=== PATIENT | male | born 1965 | race Caucasian/White ===

== ENCOUNTER 2018-02-20 17:48 | Inpatient (IN) | payer OTHER ==
[~2018-02-20] VITALS: Ht 180.3 cm; Wt 93.0 kg
[2018-02-20 19:20] LABS: BASOPHIL % 0.1 % (0-2); PLATELET COUNT 358 x10^3mcL (130-400); RED CELL DISTRIBUTION WIDTH 14.1 % (11.5-14.5)
[2018-02-20 19:27] LABS: CALCIUM 8.4 mg/dL (8.5-10.1); CARBON DIOXIDE 14.4 mmol/L (21-32); CHLORIDE SERUM 97 mmol/L (98-107); GFR1 > 60 mL/min; GLUCOSE SERUM 280 mg/dL (74-106); POTASSIUM SERUM 4.2 mmol/L (3.5-5.1); SODIUM SERUM 129 mmol/L (136-145)
[2018-02-20 19:31] LABS: ALKALINE PHOSPHATASE 85 U/L (46-116); ALT/SGPT 15 U/L (16-63); BILIRUBIN TOTAL 0.77 mg/dL (0.20-1.00)
[2018-02-20 19:38] LABS: ALBUMIN 2.6 g/dL (3.4-5.0); CHOLESTEROL 93 mg/dL (<200)
[2018-02-20 19:43] LABS: AST/SGOT 20 U/L (15-37)
[2018-02-20 20:40] LABS: AMPHETAMINE QUAL UR NONE DETECTED (See below)
[2018-02-20] MEDS ORDERED: JANUVIA100 M1 (23:33)
[2018-02-20] MEDS ORDERED: ASPIR LOW81 MG (23:33)
[2018-02-20] MEDS ORDERED: INVOKANA300 MG (23:33)
[2018-02-20] MEDS ORDERED: ATORVASTATIN CA10 M1 (23:33)
[2018-02-20] MEDS ORDERED: LOSARTAN POTASS25 M1 (23:33)
[2018-02-20] MEDS ORDERED: METFORMIN HYDR500 M1 (23:34)
[2018-02-21] VITALS (7 sets, daily range): BP systolic 92–135; BP diastolic 58–75; Ht 180.3 cm; Wt 93.0 kg
[2018-02-21 00:53] LABS: microscopic required? YES; urine erythrocyte NEGATIVE (NEGATIVE)
[2018-02-21 02:30] LABS: MAGNESIUM 1.7 mg/dL (1.8-2.4); PHOSPHOROUS 2.4 mg/dL (2.5-4.9)
[2018-02-21 02:32] LABS: CHOLESTEROL/HDL RATIO 3.2
[2018-02-21 02:54] LABS: FREE T4 1.22 ng/dL (0.76-1.46); FREE THYROXINE INDEX 2.5 ug/dL (1.4-4.5)
[2018-02-21 03:19] LABS: T3 TOTAL 0.51 ng/mL
[2018-02-21 05:22] LABS: CALCIUM 7.9 mg/dL (8.5-10.1); CARBON DIOXIDE 17.9 mmol/L (21-32); CHLORIDE SERUM 103 mmol/L (98-107); GFR1 > 60 mL/min; GLUCOSE SERUM 148 mg/dL (74-106); MAGNESIUM 1.9 mg/dL (1.8-2.4); POTASSIUM SERUM 3.3 mmol/L (3.5-5.1); SODIUM SERUM 134 mmol/L (136-145)
[2018-02-21 09:09] LABS: CALCIUM 8.1 mg/dL (8.5-10.1); CARBON DIOXIDE 17.3 mmol/L (21-32); CHLORIDE SERUM 103 mmol/L (98-107); GFR1 > 60 mL/min; GLUCOSE SERUM 157 mg/dL (74-106); MAGNESIUM 1.9 mg/dL (1.8-2.4); PHOSPHOROUS 1.5 mg/dL (2.5-4.9); POTASSIUM SERUM 3.5 mmol/L (3.5-5.1); SODIUM SERUM 135 mmol/L (136-145)
[2018-02-21 12:19] LABS: CALCIUM 8.3 mg/dL (8.5-10.1); CARBON DIOXIDE 20.9 mmol/L (21-32); CHLORIDE SERUM 103 mmol/L (98-107); GFR1 > 60 mL/min; GLUCOSE SERUM 138 mg/dL (74-106); MAGNESIUM 1.8 mg/dL (1.8-2.4); POTASSIUM SERUM 3.5 mmol/L (3.5-5.1); SODIUM SERUM 136 mmol/L (136-145)
[2018-02-21 12:22] LABS: PHOSPHOROUS 0.9 mg/dL (2.5-4.9)
[2018-02-21 16:59] LABS: CALCIUM 8.2 mg/dL (8.5-10.1); CARBON DIOXIDE 23.6 mmol/L (21-32); CHLORIDE SERUM 102 mmol/L (98-107); GFR1 > 60 mL/min; GLUCOSE SERUM 129 mg/dL (74-106); MAGNESIUM 1.7 mg/dL (1.8-2.4); POTASSIUM SERUM 3.5 mmol/L (3.5-5.1); SODIUM SERUM 134 mmol/L (136-145)
[2018-02-21 17:00] LABS: PHOSPHOROUS 0.6 mg/dL (2.5-4.9)
[2018-02-22 00:38] LABS: CALCIUM 6.6 mg/dL (8.5-10.1); CARBON DIOXIDE 19.3 mmol/L (21-32); CHLORIDE SERUM 104 mmol/L (98-107); CREATININE SERUM 0.7 mg/dL (0.7-1.3); GFR1 > 60 mL/min; GLUCOSE SERUM 148 mg/dL (74-106); POTASSIUM SERUM 3.1 mmol/L (3.5-5.1); SODIUM SERUM 136 mmol/L (136-145)
[2018-02-22 03:31] VITALS: BP 92/58
[2018-02-22 06:12] LABS: CALCIUM 7.8 mg/dL (8.5-10.1); CARBON DIOXIDE 16.1 mmol/L (21-32); CHLORIDE SERUM 103 mmol/L (98-107); CREATININE SERUM 0.8 mg/dL (0.7-1.3); GFR1 > 60 mL/min; GLUCOSE SERUM 249 mg/dL (74-106); MAGNESIUM 1.7 mg/dL (1.8-2.4); PHOSPHOROUS 1.7 mg/dL (2.5-4.9); SODIUM SERUM 135 mmol/L (136-145)
[2018-02-22 07:07] LABS: PLATELET COUNT 275 x10^3mcL (130-400); RED CELL DISTRIBUTION WIDTH 14.1 % (11.5-14.5)
[2018-02-22 08:00] VITALS: BP 101/54
[2018-02-22 10:21] LABS: BAND NEUTROPHIL 11 % (0-10); BASOPHIL 0 % (0-2); MONOCYTE 9 % (0-7); SEGMENTED NEUTROPHILS 76 % (37-75)
[2018-02-22 10:22] LABS: burr cell (echinocyte) 1+; rbc morphology (normal/abnorm) ABNORMAL (NORMAL)
[2018-02-22 12:00] VITALS: BP 90/57
[2018-02-22 12:13] LABS: CALCIUM 7.8 mg/dL (8.5-10.1); CARBON DIOXIDE 23.2 mmol/L (21-32); CHLORIDE SERUM 105 mmol/L (98-107); CREATININE SERUM 0.7 mg/dL (0.7-1.3); GFR1 > 60 mL/min; GLUCOSE SERUM 191 mg/dL (74-106); POTASSIUM SERUM 3.2 mmol/L (3.5-5.1); SODIUM SERUM 137 mmol/L (136-145)
[2018-02-22 12:52] LABS: microscopic required? NO
[2018-02-22 13:00] LABS: UA SPECIFIC GRAVITY <=1.005 (1.005-1.035); urine erythrocyte NEGATIVE (NEGATIVE)
[2018-02-22 16:00] VITALS: BP 93/57
[2018-02-22 18:47] VITALS: BP 98/59
[2018-02-22 21:10] VITALS: BP 115/63
[2018-02-23 05:54] VITALS: BP 95/58
[2018-02-23 06:31] LABS: BASOPHIL % 0.2 % (0-2); PLATELET COUNT 271 x10^3mcL (130-400); RED CELL DISTRIBUTION WIDTH 14.2 % (11.5-14.5)
[2018-02-23 06:49] LABS: CALCIUM 7.9 mg/dL (8.5-10.1); CHLORIDE SERUM 106 mmol/L (98-107); CREATININE SERUM 0.5 mg/dL (0.7-1.3); GFR1 > 60 mL/min; GLUCOSE SERUM 80 mg/dL (74-106); SODIUM SERUM 140 mmol/L (136-145)
[2018-02-23 06:56] LABS: POTASSIUM SERUM 2.9 mmol/L (3.5-5.1)
[2018-02-23 09:18] VITALS: BP 96/46
[2018-02-23 12:39] VITALS: BP 101/62
[2018-02-23 17:02] VITALS: BP 122/84
[2018-02-23 21:29] VITALS: BP 104/65
[2018-02-24 05:51] VITALS: BP 116/63
[2018-02-24 05:59] LABS: BASOPHIL % 0.3 % (0-2); PLATELET COUNT 300 x10^3mcL (130-400); RED CELL DISTRIBUTION WIDTH 14.5 % (11.5-14.5)
[2018-02-24 06:22] LABS: CALCIUM 7.9 mg/dL (8.5-10.1); CARBON DIOXIDE 29.3 mmol/L (21-32); CHLORIDE SERUM 107 mmol/L (98-107); CREATININE SERUM 0.5 mg/dL (0.7-1.3); GFR1 > 60 mL/min; GLUCOSE SERUM 109 mg/dL (74-106); POTASSIUM SERUM 3.6 mmol/L (3.5-5.1); SODIUM SERUM 142 mmol/L (136-145)
[2018-02-24 09:35] VITALS: BP 110/64
[2018-02-24 13:24] VITALS: BP 113/70
[2018-02-24 16:36] VITALS: BP 112/67
[2018-02-24 21:01] VITALS: BP 109/65
[2018-02-25 06:07] VITALS: BP 121/64
[2018-02-25 06:25] LABS: BASOPHIL % 1.6 % (0-2); PLATELET COUNT 329 x10^3mcL (130-400)
[2018-02-25 06:26] LABS: RED CELL DISTRIBUTION WIDTH 14.7 % (11.5-14.5)
[2018-02-25 06:32] LABS: CALCIUM 7.8 mg/dL (8.5-10.1); CARBON DIOXIDE 29.7 mmol/L (21-32); CHLORIDE SERUM 106 mmol/L (98-107); CREATININE SERUM 0.4 mg/dL (0.7-1.3); GFR1 > 60 mL/min; GLUCOSE SERUM 130 mg/dL (74-106); MAGNESIUM 1.6 mg/dL (1.8-2.4); PHOSPHOROUS 3.1 mg/dL (2.5-4.9); POTASSIUM SERUM 3.3 mmol/L (3.5-5.1); SODIUM SERUM 141 mmol/L (136-145)
[2018-02-25 08:35] VITALS: BP 111/58
[2018-02-25 11:30] VITALS: BP 116/64
[2018-02-25 16:56] VITALS: BP 125/70
[2018-02-25 20:46] VITALS: BP 117/68
[2018-02-26 05:49] VITALS: BP 111/58
[2018-02-26 07:22] LABS: CALCIUM 7.8 mg/dL (8.5-10.1); CARBON DIOXIDE 31.5 mmol/L (21-32); CHLORIDE SERUM 103 mmol/L (98-107); CREATININE SERUM 0.5 mg/dL (0.7-1.3); GFR1 > 60 mL/min; GLUCOSE SERUM 131 mg/dL (74-106); MAGNESIUM 1.6 mg/dL (1.8-2.4); PHOSPHOROUS 3.2 mg/dL (2.5-4.9); POTASSIUM SERUM 4.1 mmol/L (3.5-5.1); SODIUM SERUM 139 mmol/L (136-145)
[2018-02-26 07:39] LABS: BASOPHIL % 0.3 % (0-2); PLATELET COUNT 322 x10^3mcL (130-400); RED CELL DISTRIBUTION WIDTH 14.5 % (11.5-14.5)
[2018-02-26 09:04] VITALS: BP 118/63
[2018-02-26] MEDS ORDERED: ZYVOX600 MG PO (09:30)
[2018-02-26] MEDS ORDERED: MOT800 PO (09:33)
[2018-02-26 12:59] VITALS: BP 125/68
[2018-02-26 14:53] VITALS: BP 125/68
== END 2018-02-26 16:00 | disposition home health service (06) | DRG 710 ==
LOC: ED 17:48 → IC 23:31 → DU 23:31 → IC 02-21 01:07 → DU 02-22 17:07 → IC 02-22 17:08 → DU 02-22 17:53
PROVIDERS: Family Medicine; Podiatrist Foot & Ankle Surgery; Specialist
PROC: 0Y6N0ZB Detachment at Left Foot, Partial 2nd Ray, Open Approach (ICD-10-PCS; 2018-02-21)
PROC: 0Y6N0ZC Detachment at Left Foot, Partial 3rd Ray, Open Approach (ICD-10-PCS; 2018-02-21)
PROC: 0Y6N0ZD Detachment at Left Foot, Partial 4th Ray, Open Approach (ICD-10-PCS; 2018-02-21)
PROC: 0Y6N0ZF Detachment at Left Foot, Partial 5th Ray, Open Approach (ICD-10-PCS; 2018-02-21)
PROC: 0Y6N0Z9 Detachment at Left Foot, Partial 1st Ray, Open Approach (ICD-10-PCS; principal; 2018-02-21 20:00)
DX: A41.9 Sepsis, unspecified organism (principal); M72.6 Necrotizing fasciitis; E43 Unspecified severe protein-calorie malnutrition; E11.10 Type 2 diabetes mellitus with ketoacidosis without coma; E11.43 Type 2 diabetes mellitus with diabetic autonomic (poly)neuropathy; D68.59 Other primary thrombophilia; E11.621 Type 2 diabetes mellitus with foot ulcer; K31.84 Gastroparesis; E11.65 Type 2 diabetes mellitus with hyperglycemia; E87.1 Hypo-osmolality and hyponatremia; Z68.26 Body mass index [BMI] 26.0-26.9, adult; K57.30 Diverticulosis of large intestine without perforation or abscess without bleeding; I10 Essential (primary) hypertension; R62.7 Adult failure to thrive; F15.90 Other stimulant use, unspecified, uncomplicated; G51.0 Bell's palsy; Z79.82 Long term (current) use of aspirin; Z79.84 Long term (current) use of oral hypoglycemic drugs; Z83.3 Family history of diabetes mellitus; Z82.49 Family history of ischemic heart disease and other diseases of the circulatory system; Z80.9 Family history of malignant neoplasm, unspecified; L97.529 Non-pressure chronic ulcer of other part of left foot with unspecified severity; K42.9 Umbilical hernia without obstruction or gangrene
CPT/HCPCS: 36600; 82962; 83880; 84439; 97110-GP; 97116-GP; 97530-GP; 97535-GP; C9113; G0480; J1815; J2001; J2250; J2270; J2543; J2704; J2765; J3010; J3370; J3475; J3480; J3490; J7030; Q0092; Q9967

== ENCOUNTER 2018-12-22 17:58 | Emergency (ER) | payer OTHER ==
[~2018-12-22 17:58] MED LIST: ASPIR LOW81 MG; ATORVASTATIN CA10 M1; INVOKANA300 MG; JANUVIA100 M1; LOSARTAN POTASS25 M1; METFORMIN HYDR500 M1; MOT800 PO; ZYVOX600 MG PO
[2018-12-22 18:38] VITALS: Ht 182.9 cm
[2018-12-22 20:41] LABS: BASOPHIL % 0.5 % (0-2); PLATELET COUNT 187 x10^3mcL (130-400); RED CELL DISTRIBUTION WIDTH 14.4 % (11.5-14.5)
[2018-12-22 20:57] LABS: ALBUMIN 4.1 g/dL (3.4-5.0); ALKALINE PHOSPHATASE 77 U/L (46-116); ALT/SGPT 32 U/L (16-63); AST/SGOT 21 U/L (15-37); BILIRUBIN TOTAL 1.03 mg/dL (0.20-1.00); CALCIUM 10.1 mg/dL (8.5-10.1); CARBON DIOXIDE 26.4 mmol/L (21-32); CHLORIDE SERUM 97 mmol/L (98-107); GFR1 > 60 mL/min; GLUCOSE SERUM 149 mg/dL (74-106); LIPASE 108 IU/L (73-393); POTASSIUM SERUM 5.5 mmol/L (3.5-5.1); SODIUM SERUM 135 mmol/L (136-145); TOTAL PROTEIN, SERUM 8.3 g/dL (6.4-8.2)
[2018-12-22 22:09] VITALS: BP 127/77
== END 2018-12-22 22:09 | disposition home or self-care (01) ==
LOC: ED 17:58
PROVIDERS: Emergency Medicine
DX: E23.2 Diabetes insipidus (principal); R11.2 Nausea with vomiting, unspecified
CPT/HCPCS: 82962; J2405